=== PATIENT | female | born 1990 | race Hispanic/Latino ===

== ENCOUNTER 2018-07-05 19:01 | Emergency (ER) | payer SELFPAY ==
[~2018-07-05] VITALS: Ht 170.2 cm; Wt 98.5 kg
[2018-07-05] MEDS ORDERED: ONDANSETRON HCL 4 MG ORAL DISINTEGRATING TAB PO ONE (19:30)
[2018-07-05] MEDS ORDERED: KETOROLAC TROMETHAMINE 60 MG/2 ML VIAL IM ONE (19:30)
[2018-07-05 20:03] VITALS: BP 116/77
== END 2018-07-05 19:55 | disposition home or self-care (01) ==
LOC: FSED 19:01
DX: G43.019 Migraine without aura, intractable, without status migrainosus (principal)
CPT/HCPCS: 96372; 99283; J1885; Q0162